=== PATIENT | female | born 1965 | race Caucasian/White ===

== ENCOUNTER 2021-03-13 12:07 | Emergency (ER) | payer BC ==
[~2021-03-13] VITALS: Ht 162.6 cm; Wt 66.4 kg
[2021-03-13 14:09] LABS: WHITE BLOOD COUNT 10.7 X10'3 (4.5-11.0)
[2021-03-13 14:10] LABS: HEMATOCRIT 31.7 % (35.0-45.0); HEMOGLOBIN 10.5 g/dl (12.0-16.0); MEAN CORPUSCULAR HEMOGLOBIN 29.7 PG (27.0-31.0); MEAN CORPUSCULAR HGB CONC 33.1 g/dL (33.0-36.5); MEAN CORPUSCULAR VOLUME 89.7 FL (78-98); MEAN PLATELET VOLUME 8.2 FL (7.4-10.4); PLATELET COUNT 253 X10'3 (140-440); RED BLOOD COUNT 3.53 X10'6 (4.20-5.60)
[2021-03-13 14:14] LABS: PARTIAL THROMBOPLASTIN TIME 36 SECONDS (22-32)
[2021-03-13 14:16] LABS: ALANINE AMINOTRANSFERASE 32 U/L (12-78); ALBUMIN 2.2 G/DL (3.4-5.0); ALKALINE PHOSPHATASE 187 IU/L (46-116); ANION GAP 11 (8-16); ASPARTATE AMINO TRANSFERASE 105 U/L (10-37); BILIRUBIN,TOTAL 8.8 MG/DL (0.1-1.0); BLOOD UREA NITROGEN 19 MG/DL (7-18); BUN/CREATININE RATIO 12.4 (6.6-38.0); CALCIUM 8.5 MG/DL (8.5-10.1); CHLORIDE 91 MMOL/L (99-107); CREATININE 1.53 MG/DL (0.40-0.90); LIPASE 156 U/L (73-393); MAGNESIUM 2.5 MG/DL (1.5-2.4); POTASSIUM 3.1 MMOL/L (3.5-5.1); SODIUM 127 MMOL/L (135-145); TOTAL CARBON DIOXIDE 25.5 MMOL/L (24-32); eGFR 35 ML/MIN
[2021-03-13 14:22] LABS: ALBUMIN/GLOBULIN RATIO 0.4 (1.1-1.5); GLUCOSE 130 MG/DL (70-104); TOTAL PROTEIN 7.4 G/DL (6.4-8.2)
[2021-03-13 14:44] LABS: ANISOCYTOSIS 3+; BURR CELLS FEW; PLATELET ESTIMATE NORMAL; TOTAL CELLS COUNTED 100
[2021-03-13 14:45] LABS: SCHISTOCYTES FEW; TARGET CELLS FEW
[2021-03-13] MEDS ORDERED: morphine 2 MG/ML inj. syringe IV ONE (17:05)
--- NOTE | 2021-03-13 18:29 | NUR ---
paracentesis output 2400
[2021-03-13] MEDS ORDERED: potassium Cl 20 mEq SR tablet PO ONE (18:30)
--- NOTE | 2021-03-13 18:33 | NUR ---
report given to Cecile BALLARD
--- NOTE | 2021-03-13 18:44 | NUR ---
PT LYING ON BED WITH FAMILY AT BEDSIDE. NO DISTRESS. O2 SATURATION 100% ON ROOM AIR.
[2021-03-13 18:59] VITALS: BP 126/80
== END 2021-03-13 19:01 | disposition home or self-care (01) ==
LOC: ER 12:08
DX: R18.8 Other ascites (principal); K72.00 Acute and subacute hepatic failure without coma; I12.0 Hypertensive chronic kidney disease with stage 5 chronic kidney disease or end stage renal disease; N18.6 End stage renal disease; E03.9 Hypothyroidism, unspecified
CPT/HCPCS: 36415; 49083; 80053; 83690; 83735; 85007; 85025; 85610; 85730; 96374; 99285; J2270; 99283

== ENCOUNTER 2021-03-20 16:45 | Inpatient (IN) | payer BC ==
[~2021-03-20] VITALS: Ht 162.6 cm; Wt 63.6 kg
[2021-03-20 18:02] LABS: BASOPHILS # (AUTO) 0.1 X10'3 (0-0.2); BASOPHILS % (AUTO) 0.5 % (0-1); EOSINOPHILS % (AUTO) 0.3 % (0-6); LYMPHOCYTES # (AUTO) 2.1 X10'3 (1.1-4.8); LYMPHOCYTES % (AUTO) 17.6 % (21-51); MEAN CORPUSCULAR HEMOGLOBIN 30.7 PG (27.0-31.0); MEAN PLATELET VOLUME 7.7 FL (7.4-10.4); MONOCYTES # (AUTO) 1.1 X10'3 (0-0.9); MONOCYTES % (AUTO) 9.1 % (2-12); NEUTROPHILS # (AUTO) 8.5 X10'3 (1.8-7.7); NEUTROPHILS % (AUTO) 72.5 % (42-75); PLATELET COUNT 198 X10'3 (140-440); WHITE BLOOD COUNT 11.7 X10'3 (4.5-11.0)
[2021-03-20 18:17] LABS: ALANINE AMINOTRANSFERASE 32 U/L (12-78); ALBUMIN 1.8 G/DL (3.4-5.0); ALKALINE PHOSPHATASE 162 IU/L (46-116); ANION GAP 11 (8-16); ASPARTATE AMINO TRANSFERASE 95 U/L (10-37); BILIRUBIN,TOTAL 5.6 MG/DL (0.1-1.0); BLOOD UREA NITROGEN 39 MG/DL (7-18); BUN/CREATININE RATIO 14.2 (6.6-38.0); CALCIUM 8.3 MG/DL (8.5-10.1); CHLORIDE 91 MMOL/L (99-107); CREATININE 2.74 MG/DL (0.40-0.90); LIPASE 142 U/L (73-393); POTASSIUM 4.8 MMOL/L (3.5-5.1); SODIUM 121 MMOL/L (135-145); TOTAL CARBON DIOXIDE 19.2 MMOL/L (24-32); eGFR 18 ML/MIN
[2021-03-20 18:45] LABS: ALBUMIN/GLOBULIN RATIO 0.4 (1.1-1.5); GLUCOSE 93 MG/DL (70-104); TOTAL PROTEIN 6.2 G/DL (6.4-8.2)
[2021-03-20 18:47] LABS: HEMATOCRIT 24.6 % (35.0-45.0); HEMOGLOBIN 8.2 g/dl (12.0-16.0); MEAN CORPUSCULAR HGB CONC 33.5 g/dL (33.0-36.5); MEAN CORPUSCULAR VOLUME 91.7 FL (78-98); RED BLOOD COUNT 2.68 X10'6 (4.20-5.60); RED CELL DISTRIBUTION WIDTH 18.2 % (11.5-14.5)
[2021-03-20 18:50] LABS: PLATELET ESTIMATE NORMAL
[2021-03-20 18:51] LABS: ANISOCYTOSIS 2+; BURR CELLS 1+
[2021-03-20 18:52] LABS: TARGET CELLS FEW
[2021-03-20 21:53] LABS: HEMATOCRIT 22.8 % (35.0-45.0); HEMOGLOBIN 7.5 g/dl (12.0-16.0); MEAN CORPUSCULAR HEMOGLOBIN 30.9 PG (27.0-31.0); MEAN CORPUSCULAR VOLUME 93.6 FL (78-98); MEAN PLATELET VOLUME 7.6 FL (7.4-10.4); PLATELET COUNT 221 X10'3 (140-440); RED BLOOD COUNT 2.43 X10'6 (4.20-5.60); RED CELL DISTRIBUTION WIDTH 18.3 % (11.5-14.5); WHITE BLOOD COUNT 11.7 X10'3 (4.5-11.0)
[2021-03-21] VITALS (16 sets, daily range): BP systolic 89–113; BP diastolic 53–76
[2021-03-21] MEDS ORDERED: FOLI-83 PO (00:13)
[2021-03-21] MEDS ORDERED: POTA10CA44 PO (00:13)
[2021-03-21] MEDS ORDERED: LISI10TA27 PO (00:13)
[2021-03-21] MEDS ORDERED: THIA100T66 PO (00:13)
[2021-03-21] MEDS ORDERED: LEVO125T8 PO (00:13)
[2021-03-21] MEDS ORDERED: pantoprazole 40MG/NS 100ML BAG 100 ML IV ONE (00:30)
[2021-03-21] MEDS ORDERED: pantoprazole 40 MG vial IV ONE (00:30)
[2021-03-21 00:53] LABS: PARTIAL THROMBOPLASTIN TIME 36 SECONDS (22-32)
[2021-03-21] MEDS ORDERED: piperacillin/tazo 3.375gm/50ml 50 ML IV ONE (01:50)
[2021-03-21 02:13] LABS: OCCULT BLOOD STOOL POSITIVE (Neg)
[2021-03-21] MEDS ORDERED: pantoprazole 40 MG vial IV SCH (02:15)
[2021-03-21] MEDS ORDERED: phytonadione inj. 10 MG in normal saline 100ml IV soln 100 ML IV ONE ×2 (02:15→04:10)
[2021-03-21] MEDS: octreotide inj. 500 MCG in normal saline 100ml IV soln 97.5 ML IV SCH ×2 (02:15→22:34)
[2021-03-21] MEDS: normal saline 1000ml 1,000 ML IV SCH ×3 (02:20→20:54)
[2021-03-21 02:42] LABS: GASTRIC OCCULT BLOOD POSITIVE (Neg)
--- NOTE | 2021-03-21 05:25 | NUR ---
pt vomiting x2. called dr lorri carlos song and dance performer, and left message to return call regarding antiemetic. pending return call.
[2021-03-21] MEDS: pantoprazole 40MG/NS 100ML BAG 100 ML IV SCH ×4 (06:00→20:53)
--- NOTE | 2021-03-21 06:16 | NUR ---
dr espinosa returned call. states is not special technical operations officer as our schedule shows. [facility] lizama is on intead will pass to am nurse to page dr lizama regarding antiemetic.
[2021-03-21] MEDS ORDERED: folic acid 1mg/0.2ml inj IV SCH (08:00)
[2021-03-21] MEDS ORDERED: thiamine inj. 100 MG in normal saline 100ml IV soln 99 ML IV SCH (08:00)
[2021-03-21] MEDS: CefTRIAXone/D5W-Rocephin 1gm 50 ML IV SCH (08:32)
[2021-03-21] MEDS: thiamine inj. 100 MG in normal saline 100ml IV soln 100 ML IV SCH (08:32)
[2021-03-21] MEDS ORDERED: fentaNYL/PF 50MCG/1 ML 2ML syringe ONE (09:49)
[2021-03-21] MEDS ORDERED: LIDOcaine Viscous 15ml cup ONE (09:49)
[2021-03-21] MEDS ORDERED: MIDAZolam 1 MG/ML 5ML VIAL ONE (09:49)
--- NOTE | 2021-03-21 12:50 | NUR ---
[facility] started using downtime form and double RN check.
--- NOTE | 2021-03-21 13:15 | NUR ---
Second unit [facility] started using downtime form and double RN check.
--- NOTE | 2021-03-21 19:04 | NUR ---
ASSUMED CARE AND CHECKED ON PT, VITALS DONE AND ASSESSMENT. PT DENIES ANY COMPLAINTS AT THIS TIME AND IS LAYING IN BED WITH AT BEDSIDE.
[2021-03-21] MEDS: potassium Cl 20 mEq SR tablet PO SCH (20:52)
[2021-03-22] MEDS: pantoprazole 40MG/NS 100ML BAG 100 ML IV SCH ×2 (01:18→06:48)
[2021-03-22 05:59] LABS: ALANINE AMINOTRANSFERASE 39 U/L (12-78); ALBUMIN 1.6 G/DL (3.4-5.0); ALKALINE PHOSPHATASE 125 IU/L (46-116); ANION GAP 9 (8-16); ASPARTATE AMINO TRANSFERASE 117 U/L (10-37); BILIRUBIN,TOTAL 4.9 MG/DL (0.1-1.0); BLOOD UREA NITROGEN 40 MG/DL (7-18); BUN/CREATININE RATIO 23.5 (6.6-38.0); CALCIUM 7.9 MG/DL (8.5-10.1); CHLORIDE 100 MMOL/L (99-107); GLUCOSE 89 MG/DL (70-104); SODIUM 131 MMOL/L (135-145); TOTAL CARBON DIOXIDE 22.3 MMOL/L (24-32); eGFR 31 ML/MIN
[2021-03-22 06:08] LABS: ALBUMIN/GLOBULIN RATIO 0.4 (1.1-1.5); POTASSIUM 3.8 MMOL/L (3.5-5.1); TOTAL PROTEIN 5.4 G/DL (6.4-8.2)
[2021-03-22] MEDS: normal saline 1000ml 1,000 ML IV SCH (06:49)
[2021-03-22] MEDS: potassium Cl 20 mEq SR tablet PO SCH ×2 (08:15→20:30)
[2021-03-22] MEDS: thiamine inj. 100 MG in normal saline 100ml IV soln 100 ML IV SCH (08:16)
[2021-03-22] MEDS: thiamine 100mg tablet PO SCH (08:16)
[2021-03-22] MEDS: levoTHYROXINE 125mcg tablet PO SCH (08:16)
[2021-03-22] MEDS: multivitamins, therapeutics tablet PO SCH (08:16)
[2021-03-22 08:19] LABS: BASOPHILS # (AUTO) 0.1 X10'3 (0-0.2); BASOPHILS % (AUTO) 1.8 % (0-1); EOSINOPHILS # (AUTO) 0.1 X10'3 (0-0.9); EOSINOPHILS % (AUTO) 1.8 % (0-6); HEMATOCRIT 28.6 % (35.0-45.0); HEMOGLOBIN 9.7 g/dl (12.0-16.0); LYMPHOCYTES # (AUTO) 0.7 X10'3 (1.1-4.8); LYMPHOCYTES % (AUTO) 16.8 % (21-51); MEAN CORPUSCULAR HEMOGLOBIN 30.8 PG (27.0-31.0); MEAN CORPUSCULAR VOLUME 90.7 FL (78-98); MEAN PLATELET VOLUME 7.3 FL (7.4-10.4); MONOCYTES # (AUTO) 0.3 X10'3 (0-0.9); MONOCYTES % (AUTO) 6.4 % (2-12); NEUTROPHILS # (AUTO) 3.2 X10'3 (1.8-7.7); NEUTROPHILS % (AUTO) 73.2 % (42-75); PLATELET COUNT 102 X10'3 (140-440); RED BLOOD COUNT 3.15 X10'6 (4.20-5.60); RED CELL DISTRIBUTION WIDTH 16.5 % (11.5-14.5); WHITE BLOOD COUNT 4.3 X10'3 (4.5-11.0)
[2021-03-22 09:06] LABS: ANISOCYTOSIS 1+; PLATELET ESTIMATE DECREASED
[2021-03-22 09:07] LABS: BURR CELLS 2+; SCHISTOCYTES FEW
--- NOTE | 2021-03-22 09:15 | NUR ---
DR BUSCH AT BEDSIDE TO EVAL PT. OK FOR REG DIET. DIET GIVEN TO PT.
[2021-03-22] MEDS: CefTRIAXone/D5W-Rocephin 1gm 50 ML IV SCH (09:49)
[2021-03-22] MEDS: pantoprazole 40mg Tablet.DR PO SCH ×2 (09:50→20:30)
--- NOTE | 2021-03-22 14:05 | NUR ---
pt c/o abd pain from swelling 04/23 and requesting pain medications. Call to dr Hurt for pain medications and stated "No". No new orders. Educated pt about nonpharmacological pain management.
--- NOTE | 2021-03-22 17:05 | NUR ---
Pt transferred from ER main to overflow bed 24. Wheeled over in W/c accompanied by and internetworking technician. Pt needs a UA per CLINICAL COUNSELOR Barry's report. Pt is weak and a bedside commode was obtained.
[2021-03-22] MEDS ORDERED: pneumococcal 23-VAL P-sac vacc 25 mcg/0.5ml vial IMVAC ONE (17:50)
--- NOTE | 2021-03-22 19:28 | NUR ---
The patient is resting on her bed and her is at the bedside. She is reporting increased lower abd pain 10/10. She was up to the bedside commode and had a moderate amount of stool mixed with blood and mucus. Per her she did not have that last night. Dr. Barkley at the bedside
[2021-03-22] MEDS ORDERED: normal saline 1000ml 1,000 ML IV ONE (19:45)
--- NOTE | 2021-03-22 21:00 | NUR ---
Reported to hospitalist, Dr. Baumann, and made him aware of bloody stool, patient complaint of lower abd pain and elevated HR.
[2021-03-22] MEDS: morphine 2 MG/ML inj. syringe IV PRN (21:05)
[2021-03-22 21:44] LABS: OSMOLALITY UA 556 MOSM/K (50-1400)
[2021-03-22 21:54] LABS: SODIUM,URINE RANDOM < 15 MEQ/L; TOTAL PROTEIN,URINE RANDOM 16.9 MG/DL
[2021-03-22 22:25] LABS: CLARITY,URINE Clear (Clear); COLOR,URINE YELLOW (Yellow); UA COLLECTION TYPE CLN CATCH MIDSTREAM
[2021-03-22 22:26] LABS: GLUCOSE, URINE NEGATIVE (Neg); PH,URINE 5.5 (4.8-8.0); PROTEIN,URINE NEGATIVE (Neg)
[2021-03-22 22:27] LABS: KETONES,URINE NEGATIVE (Neg); LEUKOCYTE ESTERASE ,URINE SMALL (Neg); NITRITES, URINE NEGATIVE (Neg); OCCULT BLOOD,URINE TRACE-INTACT (Neg); UROBILINOGEN,URINE 0.2 E.U/dL (0.2-1.0)
--- NOTE | 2021-03-22 22:33 | NUR ---
The patient declined to have a straight cath and she was able to void. Dr. Baumann was made aware. She is reporting decreased pain to 6/10 in her lower abd. HR down to 95 and BP 103/68
[2021-03-22 22:45] LABS: BACTERIA,URINE 2+ /HPF (Neg); RBC,URINE 0-2 /HPF (0-2); RENAL CELLS, URINE FEW /HPF; SQUAMOUS EPITHELIAL CELL,UR FEW /LPF (FEW)
--- NOTE | 2021-03-22 23:01 | NUR ---
THe patient appears to be sleeping
[2021-03-22 23:20] LABS: UA EOSINOPHILS NO EOS /HPF
[2021-03-23] MEDS: morphine 2 MG/ML inj. syringe IV PRN ×3 (00:58→23:48)
--- NOTE | 2021-03-23 01:00 | NUR ---
patient requested pain med for lower abd pain
--- NOTE | 2021-03-23 02:42 | NUR ---
Micki brandon in ED - 03/23/21 at 0243 by VIOLETTA Labs drawn. HR 51. Sinus dave BP 117/50
--- NOTE | 2021-03-23 02:44 | NUR ---
The patient appears to be resting comfortably. Her is at the bedside
--- NOTE | 2021-03-23 05:10 | NUR ---
The patient appears to be resting comfortably. remains at the bedside.
--- NOTE | 2021-03-23 06:31 | NUR ---
Patient in room ED 25. I have received report from ELIO Naqvi and had the opportunity to ask questions. Awaiting patient arrival on floor to assume patient care.
[2021-03-23] MEDS: pantoprazole 40mg Tablet.DR PO SCH ×2 (07:40→19:15)
[2021-03-23] MEDS: levoTHYROXINE 125mcg tablet PO SCH (07:40)
[2021-03-23] MEDS: potassium Cl 20 mEq SR tablet PO SCH ×2 (07:40→19:15)
[2021-03-23] MEDS: multivitamins, therapeutics tablet PO SCH (07:40)
[2021-03-23] MEDS: thiamine 100mg tablet PO SCH (07:40)
[2021-03-23] MEDS: CefTRIAXone/D5W-Rocephin 1gm 50 ML IV SCH (08:00)
[2021-03-23 18:25] VITALS: BP 103/72
--- NOTE | 2021-03-23 18:39 | NUR ---
Problems reprioritized. Patient report given, questions answered & plan of care reviewed with ELIO Ballard.
--- NOTE | 2021-03-23 18:43 | NUR ---
Patient in room PCU 3019. I have received report from Farheen BALLARD and had the opportunity to ask questions and assume patient care.
[2021-03-23 22:25] VITALS: BP 99/67
[2021-03-24 02:26] VITALS: BP 104/72
[2021-03-24 06:00] VITALS: BP 110/80
--- NOTE | 2021-03-24 06:45 | NUR ---
Patient in room PCU 3019. I have received report from YASMIN BALLARD and had the opportunity to ask questions and assume patient care.
--- NOTE | 2021-03-24 06:45 | NUR ---
Problems reprioritized. Patient report given, questions answered & plan of care reviewed with Alma Delia BALLARD.
[2021-03-24] MEDS: CefTRIAXone/D5W-Rocephin 1gm 50 ML IV SCH (08:10)
[2021-03-24] MEDS: potassium Cl 20 mEq SR tablet PO SCH (08:13)
[2021-03-24] MEDS: pantoprazole 40mg Tablet.DR PO SCH (08:13)
[2021-03-24] MEDS: thiamine 100mg tablet PO SCH (08:13)
[2021-03-24] MEDS: morphine 2 MG/ML inj. syringe IV PRN (08:13)
[2021-03-24] MEDS: levoTHYROXINE 125mcg tablet PO SCH (08:13)
[2021-03-24] MEDS: multivitamins, therapeutics tablet PO SCH (08:14)
[2021-03-24 10:37] VITALS: BP 133/96
[2021-03-24] MEDS ORDERED: PANT40TA54 PO (10:50)
[2021-03-24] MEDS ORDERED: LEVO500T89 PO (10:52)
[2021-03-24] MEDS ORDERED: FURO-149 PO (10:52)
[2021-03-24 10:58] LABS: CALCIUM 7.9 MG/DL (8.5-10.1)
[2021-03-24 10:59] LABS: ANION GAP 9 (8-16); CHLORIDE 100 MMOL/L (99-107); GLUCOSE 108 MG/DL (70-104); POTASSIUM 3.7 MMOL/L (3.5-5.1); SODIUM 131 MMOL/L (135-145); TOTAL CARBON DIOXIDE 22.5 MMOL/L (24-32)
[2021-03-24 11:00] VITALS: BP 108/67
[2021-03-24 11:00] LABS: ALBUMIN 1.6 G/DL (3.4-5.0); BLOOD UREA NITROGEN 20 MG/DL (7-18); BUN/CREATININE RATIO 19.8 (6.6-38.0); CREATININE 1.01 MG/DL (0.40-0.90); PHOSPHORUS 2.7 MG/DL (2.3-4.5); eGFR 57 ML/MIN
[2021-03-24 11:08] VITALS: BP 115/69
[2021-03-24] MEDS ORDERED: POTA20TA19 PO (11:17)
[2021-03-24] MEDS ORDERED: albumin (human) 25% 100 ML IV solution IV ONE (11:35)
[2021-03-24] MEDS ORDERED: PANT40SU2 PO (13:37)
--- NOTE | 2021-03-24 13:47 | NUR ---
pt discharged at 1335. Belongings sent with patient. IV's removed, tips intact, no complications. Pt educated on discharge instructions and follow up with Dr. Hurt. Pt discharged with in private vehicle in stable condition.
--- NOTE | 2021-03-24 14:05 | NUR ---
Called and gave report to Kennedi. Spoke with Virgie VALDEZ Pt transferred at 1405 in stable condition Addendum: 03/24/21 at 1408 by Alma Delia Schwartz RN disregard, wrong patient
== END 2021-03-24 13:38 | disposition home or self-care (01) | DRG 368 ==
LOC: ER 16:46 → ED HOLD 03-21 02:23 → PCU 3S 03-23 06:30
PROVIDERS: ADMIT Internal Medicine; ATTEND Internal Medicine
PROC: 30233N1 Transfusion of Nonautologous Red Blood Cells into Peripheral Vein, Percutaneous Approach (ICD-10-PCS; 2021-03-21)
PROC: 30233K1 Transfusion of Nonautologous Frozen Plasma into Peripheral Vein, Percutaneous Approach (ICD-10-PCS; 2021-03-21)
PROC: 0DB68ZX Excision of Stomach, Via Natural or Artificial Opening Endoscopic, Diagnostic (ICD-10-PCS; 2021-03-21)
PROC: 3E0234Z Introduction of Serum, Toxoid and Vaccine into Muscle, Percutaneous Approach (ICD-10-PCS; 2021-03-22)
PROC: 0W9G3ZZ Drainage of Peritoneal Cavity, Percutaneous Approach (ICD-10-PCS; principal; 2021-03-24)
DX: K21.01 Gastro-esophageal reflux disease with esophagitis, with bleeding (principal); K29.71 Gastritis, unspecified, with bleeding; D62 Acute posthemorrhagic anemia; E46 Unspecified protein-calorie malnutrition; E87.1 Hypo-osmolality and hyponatremia; N17.9 Acute kidney failure, unspecified; E03.9 Hypothyroidism, unspecified; K70.31 Alcoholic cirrhosis of liver with ascites; I95.9 Hypotension, unspecified; Z20.822 Contact with and (suspected) exposure to COVID-19; I12.9 Hypertensive chronic kidney disease with stage 1 through stage 4 chronic kidney disease, or unspecified chronic kidney disease; K70.40 Alcoholic hepatic failure without coma; N18.9 Chronic kidney disease, unspecified; Z68.24 Body mass index [BMI] 24.0-24.9, adult; Z23 Encounter for immunization; Z79.899 Other long term (current) drug therapy
CPT/HCPCS: 36415; 36430; 43239; 49083; 74176; 76770; 80053; 80069; 81001; 82140; 82271; 82272; 82570; 83690; 83735; 83935; 84156; 84300; 84443; 85008; 85025; 85027; 85610; 85730; 86885; 86900; 86901; 86920; 87088; 87207; 87635; 90732; 93005; 96374; 99152; 99153; 99291; A4620; C9113; G0378; J0696; J2250; J2270; J2354; J2543; J3010; J3411; J3430; J3490; J7030; J7040; P9016; P9047; P9059